=== PATIENT | female | born 1960 | race African-American/Black ===

== ENCOUNTER → 2020-09-10 | Outpatient (CLI) | payer OTHER ==
[~2020-09-10] MED LIST: AUGMENTIN 875875 M1 PO; BACTRIM DS TAB1 EACH OR; CHROMAGEN CAPSU1 CAP PO; IRON OR; NORCO 5-325 TA1 EACH PO; THERA-M CAPLET1 EACH OR; TRIAMTERENE-HC1 EAC1 OR; VIVELLE1 EAC1 TOP; ZYRTEC 10 MG TA10 M1 PO
== END ==
LOC: RAD 13:40
PROVIDERS: ATTEND Family Medicine
DX: Z13.6 Encounter for screening for cardiovascular disorders (principal); I25.10 Atherosclerotic heart disease of native coronary artery without angina pectoris; E78.00 Pure hypercholesterolemia, unspecified